=== PATIENT | female | born 1980 | race Caucasian/White ===

== ENCOUNTER 2020-10-14 09:52 | Emergency (ER) | payer SELFPAY ==
--- NOTE | 2020-10-14 11:08 | ER ---
Nurse's Notes [facility] Name: Jennifer Wong Age: 40 yrs Sex: Female : 1980 Arrival Date: 10/14/2020 Time: 09:56 Bed 18 Private MD: Diagnosis: Vaginitis, vulvitis and vulvovaginitis in diseases classified elsewhere Presentation: 10/14 10:05 Chief complaint: Patient states: Vaginal swelling x 3 days, lump on R labia, probably ca1 an abscess. Reports frequent abscess. Coronavirus screen: Client denies travel out of the [place] in the last 14 days. At this time, the client does not indicate any symptoms associated with coronavirus-19. The client reports previous COVID testing was negative. Date of collection: September 2020. Ebola Screen: Patient negative for fever greater than or equal to 101.5 degrees Fahrenheit, and additional compatible Ebola Virus Disease symptoms Patient denies exposure to infectious person. Patient denies travel to an Ebola-affected area in the 21 days before illness onset. No symptoms or risks identified at this time. Initial Sepsis Screen: Does the patient meet any 2 criteria? No. Patient's initial sepsis screen is negative. Does the patient have a suspected source of infection? No. Patient's initial sepsis screen is negative. Risk Assessment: Do you want to hurt yourself or someone else? Patient reports no desire to harm self or others. Onset of symptoms was October 14, 2020. 10:05 Method Of Arrival: Ambulatory ca1 10:05 Acuity: MARANDA 4 ca1 Triage Assessment: 10:19 General: Appears in no apparent distress. uncomfortable, Behavior is calm, cooperative, ca1 appropriate for age. Pain: Complains of pain in groin Pain currently is 0 out of 10 on a pain scale. at worst was 10 out of 10 on a pain scale. Pain began 2-3 days ago. EENT: No signs and/or symptoms were reported regarding the EENT system. Neuro: Level of Consciousness is awake, alert, obeys commands, Oriented to person, place, time, situation. : Blisters noted on labia Denies burning with urination, urinary frequency, urgency. Derm: Skin is intact, is healthy with good turgor, Skin is pink, warm \T\ dry. Musculoskeletal: Circulation, motion, and sensation intact. Capillary refill < 3 seconds. 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 - Social history:: Smoking status: Patient denies any tobacco usage or history of. Screenin:20 Abuse screen: Denies threats or abuse. Denies injuries from another. Nutritional ca1 screening: No deficits noted. Tuberculosis screening: No symptoms or risk factors identified. Fall Risk None identified. Assessment: 10:20 Reassessment: see triage notes. ca1 11:12 Reassessment: Patient appears in no apparent distress at this time. Patient and/or ca1 family updated on plan of care and expected duration. Pain level reassessed. Patient is alert, oriented x 3, equal unlabored respirations, skin warm/dry/pink. 11:37 Reassessment: Awaiting swab from Lab. ca1 11:57 Reassessment: Patient appears in no apparent distress at this time. Patient is alert, ca1 oriented x 3, equal unlabored respirations, skin warm/dry/pink. Vital Signs: 10:05 BP 144 / 88; Pulse 102; Resp 18 S; Temp 98.2(TE); Pulse Ox 98% on R/A; Weight 117.93 kg ca1 (R); Height 5 ft. 3 in. (160.02 cm) (R); Pain 0/10; 11:12 BP 139 / 97; Pulse 92; Resp 18 S; Pulse Ox 95% on R/A; ca1 11:57 BP 131 / 70; Pulse 98; Resp 16 S; Pulse Ox 98% on R/A; ca1 10:05 Body Mass Index 46.06 (117.93 kg, 160.02 cm) ca1 ED Course: 09:56 Patient arrived in ED. rg4 10:09 Chelly Landon, THUAN is Primary Nurse. ca1 10:18 Triage completed. ca1 10:19 Arm band placed on right wrist. ca1 10:20 Patient has correct armband on for positive identification. Placed in gown. Bed in low ca1 position. Call light in reach. Side rails up X2. Pulse ox on. NIBP on. Warm blanket given. 10:33 Barbie Peoples [facility]C [facility]. snw 10:33 Guzman Herman MD is Attending Physician. snw 11:42 [facility]. Lab Test Sent. ca1 11:57 No provider procedures requiring assistance completed. Patient did not have IV access ca1 during this emergency room visit. Administered Medications: 11:42 Drug: Viscous Lidocaine Liquid (4 %) 10 ml Route: Mucous Membrane; ca1 Outcome: 11:08 Discharge ordered by . snw 11:57 Discharged to home ambulatory. ca1 11:57 Condition: stable 11:57 Discharge instructions given to patient, Instructed on discharge instructions, follow up and referral plans. medication usage, Demonstrated understanding of instructions, follow-up care, medications, Prescriptions given X 1. 11:58 Patient left the ED. ca1 Signatures: Barbie Peoples FNP-C LEAD SPRINKLER-Csnw Val Spencer rg4 Chelly Landon RN RN ca1 Corrections: (The following items were deleted from the chart) 10:58 10:19 : Denies burning with urination, urinary frequency, urgency, ca1 ca1
--- NOTE | 2020-10-14 11:08 | EDPHYS ---
Physician Documentation [facility] Name: Jennifer Wong Age: 40 yrs Sex: Female : 1980 Arrival Date: 10/14/2020 Time: 09:56 Bed 18 Private MD: JED Physician Guzman Herman HPI: 10/14 11:11 This 40 yrs old Female presents to ER via Ambulatory with complaints of snw Vaginal Pain. 11:11 The patient presents with vaginal pain. Onset: The symptoms/episode began/occurred 3 snw day(s) ago, and became persistent. Modifying factors: The symptoms are alleviated by nothing, the symptoms are aggravated by movement, sexual intercourse, walking, urinating. Severity of symptoms: At their worst the symptoms were moderate, severe. The patient has not experienced similar symptoms in the past. It is unknown whether or not the patient has recently seen a physician. 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 - Social history:: Smoking status: Patient denies any tobacco usage or history of. ROS: 11:11 Constitutional: Negative for fever, chills, and weight loss, Eyes: Negative for injury, snw pain, redness, and discharge, ENT: Negative for injury, pain, and discharge, Neck: Negative for injury, pain, and swelling, Cardiovascular: Negative for chest pain, palpitations, and edema, Respiratory: Negative for shortness of breath, cough, wheezing, and pleuritic chest pain, Abdomen/GI: Negative for abdominal pain, nausea, vomiting, diarrhea, and constipation, Back: Negative for injury and pain, MS/Extremity: Negative for injury and deformity, Skin: Negative for injury, rash, and discoloration, Neuro: Negative for headache, weakness, numbness, tingling, and seizure, Psych: Negative for depression, anxiety, suicide ideation, homicidal ideation, and hallucinations. 11:11 : Positive for urinary symptoms, vaginal pain. Exam: 11:09 Constitutional: This is a well developed, well nourished patient who is awake, alert, snw and in no acute distress. Head/Face: Normocephalic, atraumatic. Eyes: Pupils equal round and reactive to light, extra-ocular motions intact. Lids and lashes normal. Conjunctiva and sclera are non-icteric and not injected. Cornea within normal limits. Periorbital areas with no swelling, redness, or edema. ENT: Nares patent. No nasal discharge, no septal abnormalities noted. Tympanic membranes are normal and external auditory canals are clear. Oropharynx with no redness, swelling, or masses, exudates, or evidence of obstruction, uvula midline. Mucous membranes moist. Neck: Trachea midline, no thyromegaly or masses palpated, and no cervical lymphadenopathy. Supple, full range of motion without nuchal rigidity, or vertebral point tenderness. No Meningismus. Chest/axilla: Normal chest wall appearance and motion. Nontender with no deformity. No lesions are appreciated. Cardiovascular: Regular rate and rhythm with a normal S1 and S2. No gallops, murmurs, or rubs. Normal PMI, no JVD. No pulse deficits. Respiratory: Lungs have equal breath sounds bilaterally, clear to auscultation and percussion. No rales, rhonchi or wheezes noted. No increased work of breathing, no retractions or nasal flaring. Abdomen/GI: Soft, non-tender, with normal bowel sounds. No distension or tympany. No guarding or rebound. No evidence of tenderness throughout. Back: No spinal tenderness. No costovertebral tenderness. Full range of motion. Pelvic Exam: Normal external genitalia. Tenderness to labia majora/minora with erythema, noted to have vesicles to vaginal michelle bilaterally Skin: Warm, dry with normal turgor. Normal color with no rashes, no lesions, and no evidence of cellulitis. MS/ Extremity: Pulses equal, no cyanosis. Neurovascular intact. Full, normal range of motion. Neuro: Awake and alert, GCS 15, oriented to person, place, time, and situation. Cranial nerves II-XII grossly intact. Motor strength 5/5 in all extremities. Sensory grossly intact. Cerebellar exam normal. Normal gait. Psych: Awake, alert, with orientation to person, place and time. Behavior, mood, and affect are within normal limits. Vital Signs: 10:05 BP 144 / 88; Pulse 102; Resp 18 S; Temp 98.2(TE); Pulse Ox 98% on R/A; Weight 117.93 kg ca1 (R); Height 5 ft. 3 in. (160.02 cm) (R); Pain 0/10; 11:12 BP 139 / 97; Pulse 92; Resp 18 S; Pulse Ox 95% on R/A; ca1 11:57 BP 131 / 70; Pulse 98; Resp 16 S; Pulse Ox 98% on R/A; ca1 10:05 Body Mass Index 46.06 (117.93 kg, 160.02 cm) ca1 MDM: 10:34 Patient medically screened. francisco j 11:12 Data reviewed: vital signs, nurses notes. Data interpreted: Pulse oximetry: on room air snw is 95 %. Interpretation: acceptable. Counseling: I had a detailed discussion with the patient and/or guardian regarding: the historical points, exam findings, and any diagnostic results supporting the discharge/admit diagnosis, lab results, the need for outpatient follow up, to return to the emergency department if symptoms worsen or persist or if there are any questions or concerns that arise at home. Special discussion: I have referred the patient to see his PCP for further evaluation of high blood pressure. Based on the history and exam findings, there is no indication for further emergent testing or inpatient evaluation. I discussed with the patient/guardian the need to see the OB Gyne specialist for further evaluation of the symptoms. 10/14 11:05 Order name: [facility]. Lab Test snw Administered Medications: 11:42 Drug: Viscous Lidocaine Liquid (4 %) 10 ml Route: Mucous Membrane; ca1 Disposition: 16:32 Co-signature as Attending Physician, Guzman Herman MD I agree with the assessment and francisco j plan of care. Disposition: 10/14/20 11:08 Discharged to Home. Impression: Vaginitis, vulvitis and vulvovaginitis in diseases classified elsewhere. - Condition is Stable. - Discharge Instructions: Genital Herpes, How to Take a Sitz Bath, Vaginitis. - Prescriptions for Zovirax 400 mg Oral Tablet - take 1 tablet by ORAL route every 8 hours for 10 days; 30 tablet. - Medication Reconciliation Form, Thank You Letter, Antibiotic Education, Prescription Opioid Use form. - Follow up: Emergency Department; When: As needed; Reason: Worsening of condition. Follow up: Private Physician; When: 2 - 3 days; Reason: Recheck today's complaints, Continuance of care, Re-evaluation by your physician. Signatures: Dispatcher [employer] EDGuzman Vela MD MD cha Waters, Shelly, SURGERY SCHEDULING COORDINATOR-C SURGERY SCHEDULING COORDINATOR-Csnw Chelly Landon RN RN ca1 Corrections: (The following items were deleted from the chart) 11:58 11:08 10/14/2020 11:08 Discharged to Home. Impression: Vaginitis, vulvitis and ca1 vulvovaginitis in diseases classified elsewhere. Condition is Stable. Forms are Medication Reconciliation Form, Thank You Letter, Antibiotic Education, Prescription Opioid Use. Follow up: Emergency Department; When: As needed; Reason: Worsening of condition. Follow up: Private Physician; When: 2 - 3 days; Reason: Recheck today's complaints, Continuance of care, Re-evaluation by your physician. snw
[2020-10-14] MEDS ORDERED: LIDOCAINE VISCOUS 2% SOLN 15 ML UDC ONE (11:30)
[2020-10-14 12:02] VITALS: TEMP 98.2
[2020-10-14 12:08] VITALS: BP 131/70; O2SAT 98
== END 2020-10-14 11:58 | disposition home or self-care (01) ==
LOC: ER 09:52
DX: R10.2 Pelvic and perineal pain (principal); N77.1 Vaginitis, vulvitis and vulvovaginitis in diseases classified elsewhere
CPT/HCPCS: 99284

== ENCOUNTER 2024-08-04 20:08 | Emergency (ER) | payer OTHER, SELFPAY ==
--- OUTSIDE RECORDS SUMMARY | 2024-08-04 20:11 | XMS REPORT | Continuity of Care Document ---
Author Name Unknown Address [address] [place] [address] [facility] thconnect Address [address] [place] [address] Care Team Providers Care Side Laster Staple Name Role Phone RustysawyerLeigha Ray Primary Care Physicia n JOSE GARRETT Attending Clinician Unavailable JOSE GARRETT Attending Clinician Unavailable Jose Garrett DO Attending Clinician [phone] Payers Payer Name Policy Type Policy Number Effective Date Expirati on Date Source [facility] [id number] 1993 00:00:00 2023-10 00:00:00 Problems Condition Name Condition Details Condition Category Status Onset Date Resolution Date Last Treatment Date Treating Clinician Comments Source S/P section S/P section Disease Active 10-31 00:00: 00 [facility] Severe pre-eclamp beau Severe pre-eclamp beau Disease Active 10-26 00:00: 00 [facility] Morbid obesity with body mass index of 50 or higher Morbid obesity with body mass index of 50 or higher Disease Active 10-26 00:00: 00 [facility] Chronic hypertensi on Chronic hypertensi on Disease Active 10-26 00:00: 00 [facility] Previous gestationa l diabetes mellitus, antepartum , third trimester Previous gestationa l diabetes mellitus, antepartum , third trimester Disease Active 10-26 00:00: 00 [facility] Hypothyroi d Hypothyroi d Disease Active 10-26 00:00: 00 [facility] 35 weeks gestation of 35 weeks gestation of Disease Active 10-26 00:00: 00 [facility] Chronic hypertensi on with superimpos ed pre-eclamp beau Chronic hypertensi on with superimpos ed pre-eclamp beau Disease Active 10-26 00:00: 00 [facility] Type 2 diabetes mellitus affecting in third trimester, antepartum Type 2 diabetes mellitus affecting in third trimester, antepartum Disease Active 10-26 00:00: 00 [facility] Allergies, Adverse Reactions, Alerts Allergy Name Allergy Type Status Severity Reaction(s) Onset Date Inactive Date Treating Clinician Comments Source NO KNOWN ALLERGIE S Drug Class Active [facility] Social History Social Habit Start Date Stop Date Quantity Comments Source Sexual orientation U [facility] History of tobacco use Current smoker [facility] History of Social function 2019-04-20 00:00:00 2019-04-20 00:00:00 [facility] Tobacco use and exposure 2018-11-07 00:00:00 2018-11-07 00:00:00 Smokeless tobacco non-user [facility] Sex assigned at 1980 00:00:00 1980 00:00:00 [facility] Smoking Status Start Date Stop Date Source Ex-smoker 2018-11-07 00:00:00 2018-11-07 00:00:00 [facility] Medications Ordered Medication Name Filled Medication Name Start Date Stop Date Current Medication? Ordering Clinician Indication Dosage Frequency Signature (SIG) Comments Components Source ibuprofen (IBU) tablet 600 mg 2023-10 17:26: 00 08-03 17:42 :00 No 600mg 600 mg, Oral, ONCE, 1 dose, On Wed08/03/24 at 1230, KENNY [facility] methocarbam oL (ROBAXIN) tablet 1,000 mg 2023-10 17:26: 00 08-03 17:42 :00 No 1000mg 1,000 mg, Oral, ONCE, 1 dose, On Wed08/03/24 at 1230, KENNY [facility] naproxen 375 mg tablet 2023-10 00:00: 00 Yes [id number] 375mg Take 1 tablet by mouth in the morning and 1 tablet in the evening. Take with meals. [facility] methocarbam oL 750 mg tablet 2023-10 00:00: 00 Yes [id number] 750mg Take 1 tablet by mouth 4 (four) times daily. [facility] levothyroxi ne 100 mcg tablet 11-01 00:00: 00 Yes [id number] 100ug Take 1 tablet by mouth every morning. [facility] metFORMIN 500 mg tablet 10-31 00:00: 00 Yes [id number] 500mg Take 1 tablet by mouth 2 (two) times daily with meals. [facility] vitamin w/FA tablet 10-31 00:00: 00 Yes [id number] 1{tbl} Take 1 tablet by mouth daily. [facility] docusate calcium 240 mg capsule 10-31 00:00: 00 Yes [id number] 240mg Take 1 capsule by mouth once daily as needed for Constipati on. [facility] ferrous sulfate 325 mg (65 mg iron) tablet 10-31 00:00: 00 Yes [id number] 325mg Take 1 tablet by mouth 2 (two) times daily. [facility] ibuprofen 600 mg tablet 10-31 00:00: 00 Yes [id number] 600mg Take 1 tablet by mouth every 6 (six) hours as needed for Pain (scale 1-3) or Pain (scale 4-6) (Pain). Take with food or milk. [facility] HYDROcodone -acetaminop hen 5-325 mg tablet 10-31 00:00: 00 Yes [id number] 1{tbl} Take 1-2 tablets by mouth every 6 (six) hours as needed for Pain (scale 4-6) (Pain scale above 4). [facility] NIFEdipine ER 30 mg SR tablet 10-31 00:00: 00 Yes [id number] 30mg Take 1 tablet by mouth daily. [facility] Immunizations Ordered Immunization Name Filled Immunization Name Date Status Comments Source Varicella (varivax)(chicken pox) 2018-10-31 00:00:00 Completed [facility] MMR 2018-10-31 00:00:00 Completed Vital Signs Vital Name Observation Time Observation Value Comments Sudhakar tillman Systolic blood pressure 2024-08-03 19:19:31 126 mm[Hg] [facility] Diastolic blood pressure 2024-08-03 19:19:31 87 mm[Hg] [facility] Heart rate 2024-08-03 19:19:31 100 /min [facility] Body temperature 2024-08-03 19:19:31 36.83 Sita [facility] Respiratory rate 2024-08-03 19:19:31 16 /min [facility] Oxygen saturation in Arterial blood by Pulse oximetry 2024-08-03 19:19:31 99 /min [facility] Body height 2024-08-03 15:57:00 160 cm [facility] Body weight 2024-08-03 15:57:00 90.719 kg [facility] BMI 2024-08-03 15:57:00 35.43 kg/m2 [facility] Procedures Procedure Date / Time Performed Performing Clinicia n Source XR CHEST 2 VW 2024-08-03 17:40:54 Jose Garrett [facility] Encounters Start Date/Time End Date/Time Encounter Type Admission Type Attending Clinicians Care Facility Care Department Encounter ID Source 2024-08-03 10:58:00 2024-08-03 14:21:00 Emergency X JOSE GARRETT TIMOTHY [facility] ERT [id number] [facility] 2024-08-03 10:58:00 2024-08-03 14:21:00 Emergency Jose Garrett AT [facility] [id number] [facility] Results Test Description Test Time Test Comments Results Resul t Comments Source XR CHEST 2 VW 2024-07-12 4 17:44:07 HISTORY: ?Chest pain. TECHNIQUE: PA and lateral views of the chest are obtained. No prior cheststudy available for comparison. FINDINGS: Poor inspiratory effort shown by the patient in both views,particularly more pronounced in the lateral view. No acute pneumoniadetected. No pneumothorax or pleural effusion or pulmonary congestion.Cardiomed iastinal contour appears normal. CONCLUSIONS: No signs of acute cardiopulmonary disease. [facility] Notes Date/Time Note Provider Source 2024-08-03 14:21:08 Patient discharged to home. Patient given printed and verbal discharge instructions regarding diagnosis. Instructed to follow up with PCP. Patient verbalized understanding of instructions. Patient awake, alert, oriented, respirations even and unlabored, skin warm and dry, color appropriate for race. No adverse reaction to meds given in ER noted upon discharge. Discussed medications. Advised to seek medical attention for new/prolonged/worsening of symptoms, patient ambulated from unit with steady gait in no apparent distress. Binh Hinkle RN [facility] 2024-08-03 10:56:30 Patient to ED for right side of back hurting x 1 month. Reports she turned and heard a popping sound 2 weeks ago and it got worse. Denies any urinary symptoms. Patient reports she never tried OTC pain meds like tylenol or motrin. NIMOT Kirk Ricketts RN [facility]
[2024-08-04] MEDS ORDERED: KETOROLAC 30 MG/ML INJ ONE (20:50)
[2024-08-04 21:24] LABS: Specific Gravity > 1.030 (1.005-1.030)
--- NOTE | 2024-08-04 22:15 | RAD REPORT ---
EXAMINATION: CT LUMBAR SPINE WITHOUT CONTRAST CLINICAL INDICATION: Back pain/radiculopathy TECHNIQUE: Axial CT images were obtained through the lumbar spine in soft tissue and bone windows wit hout intravenous contrast. Coronal and Sagittal reformatted images were created from the data set. One or more of the following dose reduction techniques were used: Automated exposure control, adjustm ent of the mA and/ or kV according to patient size, and/or iterative reconstruction. Unless otherwise specified, incidental findings do not require dedicated imaging follow-up. COMPARISON: No prior exam. FINDINGS: Disc bulge with large broad-based posterior osteophyte L3-4. This in combination with facet hypertrop hy results in narrowing of the thecal sac to 5 mm. Moderate narrowing of the neural foramina bilaterally. Disc bulge with large broad-based posterior osteophyte L5-S1. Facet hypertrophy. Mild epidural lipoma tosis. Thecal sac 7.5 mm. Marked narrowing of the right neural foramina. Disc space narrowing with vacuum phenomena present. No fracture or dislocation IMPRESSION: Spondylosis L3-4 results in moderate central spinal stenosis Spondylosis L5-S1 results in mild to moderate central spinal stenosis and marked right foraminal sten osis. MRI would be helpful for further evaluation.
--- NOTE | 2024-08-04 22:47 | ER ---
Nurse's Notes [facility] Name: Jennifer Wong Age: 43 yrs Sex: Female : 1980 Arrival Date: 08/04/2024 Time: 20:08 Bed 18 Private MD: Diagnosis: Low back pain Presentation: 08/04 20:22 Chief complaint: Patient states: right sided back pain that started a couple of weeks tm6 ago. At that time, I turned over in bed and heard a cracking sound. Has been hurting ever since. Coronavirus screen: Client denies travel out of the [place] in the last 14 days. Ebola Screen: Patient negative for fever greater than or equal to 101.5 degrees Fahrenheit, and additional compatible Ebola Virus Disease symptoms Patient denies exposure to infectious person. Patient denies travel to an Ebola-affected area in the 21 days before illness onset. No symptoms or risks identified at this time. Initial Sepsis Screen: Does the patient meet any 2 criteria? HR > 90 bpm. Does the patient have a suspected source of infection? No. Patient's initial sepsis screen is negative. Risk Assessment: Do you want to hurt yourself or someone else? Patient reports no desire to harm self or others. Onset of symptoms was July 14, 2024. 20:22 Method Of Arrival: Ambulatory tm6 20:22 Acuity: MARANDA 4 tm6 Triage Assessment: 20:24 General: Appears uncomfortable, Behavior is cooperative. Pain: Complains of pain in tm6 right mid back and right low back Pain currently is 10 out of 10 on a pain scale. Pain began a couple of weeks ago. EENT: No signs and/or symptoms were reported regarding the EENT system. Neuro: Level of Consciousness is awake, alert, obeys commands, Oriented to person, place, time, situation. Cardiovascular: Patient's skin is warm and dry. Respiratory: Airway is patent Respiratory effort is even, unlabored, Respiratory pattern is regular, symmetrical. GI: No signs and/or symptoms were reported involving the gastrointestinal system. Abdomen is round non-distended. : No signs and/or symptoms were reported regarding the genitourinary system. Derm: No signs and/or symptoms reported regarding the dermatologic system. Musculoskeletal: Circulation, motion, and sensation intact. Reports pain in right mid back and right low back. 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 - Infectious Disease History:: Denies. - Social history:: Smoking status: Patient denies any tobacco usage or history of. Patient/guardian denies using alcohol. - Family history:: not pertinent. Screenin:30 [facility] ED Fall Risk Assessment (Adult) History of falling in the last 3 months, kj2 including since admission No falls in past 3 months (0 pts) Confusion or Disorientation No (0 pts) Intoxicated or Sedated No (0 pts) Impaired Gait No (0 pts) Mobility Assist Device Used No (0 pt) Altered Elimination No (0 pt) Score/Fall Risk Level 0 - 2 = Low Risk Maintained a safe environment, Hourly rounding (assess needs \T\ fall precautionary measures) done. Abuse screen: Denies threats or abuse. Denies injuries from another. Nutritional screening: No deficits noted. Tuberculosis screening: No symptoms or risk factors identified. Assessment: 20:30 General: Appears in no apparent distress. Behavior is calm, cooperative. Pain: kj2 Complains of pain in back Pain currently is 9 out of 10 on a pain scale. Neuro: Level of Consciousness is awake, alert, Oriented to person, place, time, situation. Cardiovascular: Patient's skin is warm and dry. Respiratory: Airway is patent Respiratory effort is even, unlabored. GI: No signs and/or symptoms were reported involving the gastrointestinal system. : No signs and/or symptoms were reported regarding the genitourinary system. 20:58 Reassessment: No changes from previously documented assessment. Patient is alert, kj2 oriented x 3, equal unlabored respirations, skin warm/dry/pink. 22:00 Reassessment: Patient appears in no apparent distress at this time. Patient and/or kj2 family updated on plan of care and expected duration. Pain level reassessed. Patient is alert, oriented x 3, equal unlabored respirations, skin warm/dry/pink. 22:55 Reassessment: Patient appears in no apparent distress at this time. Patient and/or kj2 family updated on plan of care and expected duration. Pain level reassessed. Patient is alert, oriented x 3, equal unlabored respirations, skin warm/dry/pink. Vital Signs: 20:22 BP 171 / 108; Pulse 106; Resp 20; Temp 98.7(O); Pulse Ox 96% on R/A; MAP 127 mmHg; tm6 Weight 90.72 kg; Height 5 ft. 3 in. ; Pain 10/10; 20:58 BP 155 / 106; Pulse 88; Resp 20; Pulse Ox 100% on R/A; kj2 22:00 BP 148 / 96; Pulse 100; Resp 18; Pulse Ox 95% on R/A; kj2 22:55 BP 142 / 95; Pulse 96; Resp 18; Temp 98; Pulse Ox 96% on R/A; kj2 20:22 Body Mass Index 35.43 (90.72 kg, 160.02 cm) tm6 20:22 Pain Scale: Adult tm6 ED Course: 20:15 Patient arrived in ED. gm2 20:17 Ata Roth MD is Attending Physician. rt 20:24 Triage completed. tm6 20:26 Arm band placed on right wrist. tm6 20:30 Patient has correct armband on for positive identification. Bed in low position. Call kj2 light in reach. Side rails up X 1. Adult w/ patient. Provided Education on: CALL LIGHT. 20:42 Sherita Saldaña, RN is Primary Nurse. kj2 20:59 Radiology exam delayed due to test not completed at this time. nj 21:20 Test, Urine Sent. kj2 21:57 CT Lumbar Spine Wo Con In Process Unspecified. EDMS 22:56 No provider procedures requiring assistance completed. kj2 22:57 Patient did not have IV access during this emergency room visit. kj2 Administered Medications: 20:57 Drug: Ketorolac IM 30 mg IM once Route: IM; Site: right deltoid; kj2 21:55 Follow up: Response: No adverse reaction; Pain is decreased kj2 Medication: 20:30 VIS not applicable for this client. kj2 Outcome: 22:47 Discharge ordered by . rt 22:56 Discharged to home ambulatory, kj2 22:56 Condition: stable 22:56 Discharge instructions given to patient, Instructed on discharge instructions, follow up and referral plans. medication usage, Demonstrated understanding of instructions, follow-up care, medications, Prescriptions given X 2, 23:02 Patient left the ED. kj2 Signatures: Dispatcher [employer] EDMS Darius Saldaña Ryan, MD MD rt Leann Monroe gm2 Lottie Lagunas RN RN tm6 Sherita Saldaña RN RN kj2
--- NOTE | 2024-08-04 22:47 | EDPHYS ---
Physician Documentation [facility] Name: Jennifer Wong Age: 43 yrs Sex: Female : 1980 Arrival Date: 08/04/2024 Time: 20:08 Bed 18 Private MD: ED Physician Ata Roth HPI: 08/04 21:00 This 43 yrs old Female presents to ER via Ambulatory with complaints of Back rt Pain. 21:00 Patient presents to the ED with a right lower back pain. Patient states that she turned rt the wrong way, feeling a pop about 2 weeks ago. Denies radiation of the pain. Denies other acute complaints at this time, symptoms are moderate in severity, no other aggravating or alleviating factors.. 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 - Infectious Disease History:: Denies. - Social history:: Smoking status: Patient denies any tobacco usage or history of. Patient/guardian denies using alcohol. - Family history:: not pertinent. ROS: 21:00 Constitutional: Negative for fever, chills, and weight loss, Cardiovascular: Negative rt for chest pain, palpitations, and edema, Respiratory: Negative for shortness of breath, cough, wheezing, and pleuritic chest pain, Abdomen/GI: Negative for abdominal pain, nausea, vomiting, diarrhea, and constipation, MS/Extremity: Negative for injury and deformity, Skin: Negative for injury, rash, and discoloration, 21:00 Back: Positive for pain at rest, pain with movement, Exam: 21:00 Constitutional: This is a well developed, well nourished patient who is awake, alert, rt and in no acute distress. Head/Face: Normocephalic, atraumatic. Chest/axilla: Normal chest wall appearance and motion. Nontender with no deformity. No lesions are appreciated. Cardiovascular: Regular rate and rhythm with a normal S1 and S2. No gallops, murmurs, or rubs. Normal PMI, no JVD. No pulse deficits. Respiratory: Lungs have equal breath sounds bilaterally, clear to auscultation and percussion. No rales, rhonchi or wheezes noted. No increased work of breathing, no retractions or nasal flaring. Abdomen/GI: Soft, non-tender, with normal bowel sounds. No distension or tympany. No guarding or rebound. No evidence of tenderness throughout. 21:00 Back: Tenderness to the right lower lumbar paraspinal region, no midline tenderness, Vital Signs: 20:22 BP 171 / 108; Pulse 106; Resp 20; Temp 98.7(O); Pulse Ox 96% on R/A; MAP 127 mmHg; tm6 Weight 90.72 kg; Height 5 ft. 3 in. ; Pain 10/10; 20:58 BP 155 / 106; Pulse 88; Resp 20; Pulse Ox 100% on R/A; kj2 22:00 BP 148 / 96; Pulse 100; Resp 18; Pulse Ox 95% on R/A; kj2 22:55 BP 142 / 95; Pulse 96; Resp 18; Temp 98; Pulse Ox 96% on R/A; kj2 20:22 Body Mass Index 35.43 (90.72 kg, 160.02 cm) tm6 20:22 Pain Scale: Adult tm6 MDM: 20:30 Medical Screening Exam initiated rt 23:28 Differential diagnosis: Disc herniation, fracture, musculoskeletal pain. Data reviewed: rt vital signs, nurses notes, radiologic studies. I considered the following discharge prescriptions or medication management in the emergency department Medications were administered in the Emergency Department. See MAR. Independent interpretation of the following test(s) in the Emergency Department CT Scan: My interpretation is No fracture seen on interpretation of CT scan images. Care significantly affected by the following chronic conditions: Diabetes. Counseling: I had a detailed discussion with the patient and/or guardian regarding the historical points, exam findings, and any diagnostic results supporting the discharge/admit diagnosis, radiology results, the need for outpatient follow up, to return to the emergency department if symptoms worsen or persist or if there are any questions or concerns that arise at home. Response to treatment: the patient's symptoms have markedly improved after treatment. 08/04 20:58 Order name: Test, Urine; Complete Time: 21:26 kj2 08/04 20:35 Order name: CT Lumbar Spine Wo Con; Complete Time: 22:26 rt Administered Medications: 20:57 Drug: Ketorolac IM 30 mg IM once Route: IM; Site: right deltoid; kj2 21:55 Follow up: Response: No adverse reaction; Pain is decreased kj2 Disposition Summary: 08/04/24 22:47 Discharge Ordered Notes: Location: Home rt Problem: new rt Symptoms: have improved rt Condition: Stable rt Diagnosis - Low back pain rt Followup: rt - With: Private Physician - When: 2 - 3 days - Reason: Discharge Instructions: - Discharge Summary Sheet rt - Acute Back Pain, Adult rt Forms: - Medication Reconciliation Form rt - Antibiotic Education rt - Prescription Opioid Use rt - Patient Portal Instructions rt - Leadership Thank You Letter rt Prescriptions: - Cyclobenzaprine 10 mg Oral tablet - take 1 tablet ORAL route every 8 hours As needed; 15 tablet; Refills: 0, rt Product Selection Permitted - Tramadol 50 mg Oral tablet - take 1 tablet ORAL route every 8 hours as needed; 15 tablet; Refills: 0, rt Product Selection Permitted Signatures: Dispatcher [employer] Ata Dale MD MD rt Lottie Lagunas RN RN tm6 Sherita Saldaña RN RN kj2
[2024-08-05 12:02] VITALS: BP 142/95; TEMP 98; O2SAT 96
== END 2024-08-04 23:02 | disposition home or self-care (01) ==
LOC: ER 20:08
DX: M54.50 Low back pain, unspecified (principal)
CPT/HCPCS: 72131; 81025; 96372; 99284